=== PATIENT | female | born 1990 | race Caucasian/White ===

== ENCOUNTER → 2017-07-27 17:46 | Emergency (ER) | payer BC, MEDICAID ==
[2017-07-27 18:58] LABS: ABS Basophils 0.1 10^3/ul (0-0.2); ABS Eosinophils 0.3 10^3/ul (0-0.6); ABS Lymphocytes 2.8 10^3/ul (1.0-4.8); ABS Monocytes 0.7 10^3/ul (0-0.8); ABS Neutrophils 7.4 10^3/ul (1.5-7.7); ABS Nucleated RBC 0 10^3/ul; Eosinophil % 2.7 % (0-6); Hematocrit 40 % (35-47); Hemoglobin 13.5 g/dl (12.0-16.0); Lymphocyte % 24.8 % (25-47); Mean Corpuscular HGB Conc 34 g/dl (31-36); Mean Corpuscular Hemoglobin 30 pg (27-31); Mean Corpuscular Volume 89 fL (80-97); Mean Platelet Volume 7 um3 (7.4-10.4); Nucleated Red Blood Cells % 0; Platelet Count 356 10^3/ul (150-450); Red Blood Count 4.47 10^6/ul (4.0-5.4); Red Cell Distribution Width 13 % (10.5-15); White Blood Count 11.3 10^3/ul (3.5-10.8)
[2017-07-27 19:15] LABS: INR 0.93 (0.77-1.02)
[2017-07-27 19:27] LABS: EGFR Non-African American 127.7 (>60)
--- NOTE | 2017-07-27 19:47 | ED ---
- HPI Summary HPI Summary: 26F [id number] presents with vaginal bleeding and cramping today. She states she has been spotting starting today. She admits to nausea and vomiting that is not now. She has history of miscarriage and states that it feels similar. She denies any lightheadedness or palpitations. She denies any recent illness. She states cramping is intermittent. She has not seen her obgyn yet. - History of Current Complaint Chief Complaint: EDOBProblems Stated Complaint: OB PROBLEM Time Seen by Provider: 07/27/17 18:06 Pain Intensity: 0 - Assessment Hx Now: Yes SAB: 0 IEA: 0 - Additional Pertinent History Maternal Blood Type and Rh: O Positive - Allergies/Home Medications Allergies/Adverse Reactions: Allergies Allergy/AdvReac Type Severity Reaction Status Date / Time Cefaclor [From Ceclor] Allergy Mild Hives Verified 07/27/17 18:03 Cefprozil [From Cefzil] Allergy Mild Hives Verified 07/27/17 18:03 Iodine Allergy Anaphylatic Verified 07/27/17 18:03 Shock Latex Allergy Rash And Verified 07/27/17 18:03 Itching Shrimp Allergy Severe Anaphylatic Uncoded 07/27/17 18:03 Shock Clams Allergy Intermediate Anaphylatic Uncoded 07/27/17 18:03 Shock PMH/Surg Hx/FS Hx/Imm Hx Endocrine/Hematology History: Denies: Hx Diabetes, Hx Thyroid Disease Cardiovascular History: Denies: Hx Hypertension Respiratory History: Denies: Hx Asthma, Hx Chronic Obstructive Pulmonary Disease (COPD) GI History: Denies: Hx Ulcer - Surgical History Surgery Procedure, Year, and Place: colostomy as infant, corrected in childhood; Infectious Disease History: No Infectious Disease History: Denies: Hx Hepatitis, Hx Human Immunodeficiency Virus (HIV), Traveled Outside the [place] in Last 30 Days - Family History Known Family History: Negative: Blood Disorder - Social History Alcohol Use: Occasionally Substance Use Type: Reports: None Smoking Status (MU): Former Smoker Type: Cigarettes Have You Smoked in the Last Year: Yes Review of Systems Negative: Fever Negative: Chest Pain Negative: Shortness Of Breath Positive: Abdominal Pain - cramping, Other - vaginal bleeding. Negative: Vomiting, Diarrhea, Nausea All Other Systems Reviewed And Are Negative: Yes Physical Exam - Physical Exam Triage Information Reviewed: Yes Vital Signs Reviewed: Yes Appearance: Positive: Well-Appearing Skin: Positive: Warm, Dry Head/Face: Positive: Normal Head/Face Inspection Eyes: Positive: Normal, Conjunctiva Clear Respiratory/Lung Sounds: Positive: Clear to Auscultation, Breath Sounds Present Cardiovascular: Positive: Normal, RRR Abdomen Description: Positive: Nontender, Soft Bowel Sounds: Positive: Present Neurological: Positive: Normal Psychiatric: Positive: Normal - Vaginal Assessment Presentation Comment: cervix extremely anterior Diagnostics - Vital Signs Vital Signs Temp Pulse Resp BP Pulse Ox 07/27/17 18:03 98.6 F 88 16 137/82 100 - Laboratory Lab Results: Lab Results 07/27/17 07/27/17 07/27/17 Range/Units 18:49 18:49 18:49 WBC 11.3 H (3.5-10.8) 10^3/ul RBC 4.47 (4.0-5.4) 10^6/ul Hgb 13.5 (12.0-16.0) g/dl Hct 40 (35-47) % MCV 89 (80-97) fL MCH 30 (27-31) pg MCHC 34 (31-36) g/dl RDW 13 (10.5-15) % Plt Count 356 (150-450) 10^3/ul MPV 7 L (7.4-10.4) um3 Neut % (Auto) 65.6 (38-83) % Lymph % (Auto) 24.8 L (25-47) % Loving % (Auto) 6.4 (1-9) % Eos % (Auto) 2.7 (0-6) % Baso % (Auto) 0.5 (0-2) % Absolute Neuts (auto) 7.4 (1.5-7.7) 10^3/ul Absolute Lymphs (auto) 2.8 (1.0-4.8) 10^3/ul Absolute Monos (auto) 0.7 (0-0.8) 10^3/ul Absolute Eos (auto) 0.3 (0-0.6) 10^3/ul Absolute Basos (auto) 0.1 (0-0.2) 10^3/ul Absolute Nucleated RBC 0 10^3/ul Nucleated RBC % 0 INR (Anticoag Therapy) 0.93 (0.77-1.02) APTT 32.5 (26.0-36.3) seconds Sodium (133-145) mmol/L Potassium (3.5-5.0) mmol/L Chloride (101-111) mmol/L Carbon Dioxide (22-32) mmol/L Anion Gap (2-11) mmol/L BUN (6-24) mg/dL Creatinine (0.51-0.95) mg/dL Est GFR ( Amer) (>60) Est GFR (Non-Af Amer) (>60) BUN/Creatinine Ratio (8-20) Glucose (70-100) mg/dL Calcium (8.6-10.3) mg/dL Total Bilirubin (0.2-1.0) mg/dL AST (13-39) U/L ALT (7-52) U/L Alkaline Phosphatase (34-104) U/L Total Protein (6.4-8.9) g/dL Albumin (3.2-5.2) g/dL Globulin (2-4) g/dL Albumin/Globulin Ratio (1-3) Beta HCG, Quant Blood Type O Positive 07/27/17 Range/Units 18:49 WBC (3.5-10.8) 10^3/ul RBC (4.0-5.4) 10^6/ul Hgb (12.0-16.0) g/dl Hct (35-47) % MCV (80-97) fL MCH (27-31) pg MCHC (31-36) g/dl RDW (10.5-15) % Plt Count (150-450) 10^3/ul MPV (7.4-10.4) um3 Neut % (Auto) (38-83) % Lymph % (Auto) (25-47) % Loving % (Auto) (1-9) % Eos % (Auto) (0-6) % Baso % (Auto) (0-2) % Absolute Neuts (auto) (1.5-7.7) 10^3/ul Absolute Lymphs (auto) (1.0-4.8) 10^3/ul Absolute Monos (auto) (0-0.8) 10^3/ul Absolute Eos (auto) (0-0.6) 10^3/ul Absolute Basos (auto) (0-0.2) 10^3/ul Absolute Nucleated RBC 10^3/ul Nucleated RBC % INR (Anticoag Therapy) (0.77-1.02) APTT (26.0-36.3) seconds Sodium 134 (133-145) mmol/L Potassium 3.4 L (3.5-5.0) mmol/L Chloride 103 (101-111) mmol/L Carbon Dioxide 24 (22-32) mmol/L Anion Gap 7 (2-11) mmol/L BUN 10 (6-24) mg/dL Creatinine 0.58 (0.51-0.95) mg/dL Est GFR ( Amer) 164.3 (>60) Est GFR (Non-Af Amer) 127.7 (>60) BUN/Creatinine Ratio 17.2 (8-20) Glucose 99 (70-100) mg/dL Calcium 9.4 (8.6-10.3) mg/dL Total Bilirubin 0.20 (0.2-1.0) mg/dL AST 15 (13-39) U/L ALT 13 (7-52) U/L Alkaline Phosphatase 61 (34-104) U/L Total Protein 7.5 (6.4-8.9) g/dL Albumin 4.1 (3.2-5.2) g/dL Globulin 3.4 (2-4) g/dL Albumin/Globulin Ratio 1.2 (1-3) Beta HCG, Quant Pending Blood Type Result Diagrams: 07/27/17 18:49 07/27/17 18:49 Lab Statement: Any lab studies that have been ordered have been reviewed, and results considered in the medical decision making process. - Ultrasound No standard instances Ultrasound Interpretation: Positive (See Comments) - IMPRESSION: Single intrauterine gestation with estimated gestational age of 7 weeks 6 days. Estimated date of delivery is March 02, 1718. Left corpus luteal cyst is identified. Ultrasound Interpretation Completed By: Radiologist Course/Dx - Course Course Of Treatment: 26F [id number] presents with vaginal bleeding and cramping today. She states she has been spotting starting today. She admits to nausea and vomiting that is not now. She has history of miscarriage and states that it feels similar. She denies any lightheadedness or palpitations. She denies any recent illness. She states cramping is intermittent. She has not seen her obgyn yet. [place] [address]. u/s shows intrauterine . will have follow up with obgyn for repeat hcg level. patient understand and agrees with plan. - Differential Diagnosis/HQI/PQRI: Spontaneous , Threatened , Intrauterine - Diagnoses Provider Diagnoses: Vaginal bleeding during , antepartum Discharge - Discharge Plan Condition: Good Disposition: HOME Patient Education Materials: Threatened Miscarriage (ED) Referrals: Vern Long MD [Primary Care Provider] - Additional Instructions: The education provided is for your information. You may or may not have a miscarriage at this point. Follow up with OBGYN as will need repeat HCG level drawn to trend in two days Return to ED if develop severe abdominal pain, fever, severe bleeding with symptoms such as lightheadedness or any new or worsening symptoms
--- NOTE | 2017-07-27 21:09 | RAD ---
Indication: , bleeding. Real-time sonography of the was performed. There is a single intrauterine gestation with a mean crown-rump length of 1.6 cm corresponding to gestational age of 8 weeks 0 days. Gestational sac measures 2.5 cm corresponding to gestational age of 7 weeks 5 days. Yolk sac is identified. heart activity is noted at 1 53 bpm. The estimated gestational age of 7 weeks 6 days. Estimated date of delivery is March 09, 2018. Right ovary measures 3.0 x 2.2 x 3.2 cm. Left ovary measures 4.3 x 3.4 x 3.5 cm with likely corpus luteal cyst measuring up to 1.9 x 2.1 x 2.0 cm. IMPRESSION: Single intrauterine gestation with estimated gestational age of 7 weeks 6 days. Estimated date of delivery is March 02, 1718. Left corpus luteal cyst is identified.
[2017-07-27 21:42] LABS: Urine Appearance Clear; Urine Blood 1+ (Negative); Urine Color Yellow; Urine Ketones Negative (Negative); Urine Protein Negative (Negative); Urine Urobilinogen Negative (Negative)
[2017-07-27 22:23] VITALS: BP 122/81
== END | disposition home or self-care (01) ==
LOC: ED 17:46
DX: O46.91 Antepartum hemorrhage, unspecified, first trimester (principal); Z3A.01 Less than 8 weeks gestation of pregnancy; Z87.891 Personal history of nicotine dependence
CPT/HCPCS: 36415; 76801; 80053; 81003; 81015; 84702; 85025; 85610; 85730; 86900; 86901; 87086; 99283

== ENCOUNTER 2017-12-25 11:12 | Emergency (ER) | payer BC ==
[2017-12-25 11:54] VITALS: BP 111/74
--- NOTE | 2017-12-25 12:31 | UC ---
Karine Sawyer Tenzin, scribed for Irina Farnsworth MD on 12/25/17 at 1219 . Throat Pain/Nasal Ross HPI - HPI Summary HPI Summary: Pt is a 27 years old female currently (due in february) presenting to the [facility] complaining of stuffy nose, congestion since two weeks ago. She notes that she had sore throat last night. Patient also with left ear pain and fullness. Pt rates the pain at 2/10 in severity and describes it as aching, sharp and burning. pt with + PND. + cough - mild sob with coughing episodes. Pt denies fever, nauseous and chills. Pt took Mucinex for her sore throat. She is a hair and makeup designer. + sick contact with strep. Has a 3 yo with runny nose. Pt's medications reviewed this visit - History of Current Complaint Chief Complaint: UCGeneralIllness Stated Complaint: SORE THROAT SINUS ISSUE Time Seen by Provider: 12/25/17 11:53 Hx Obtained From: Patient Hx Last Menstrual Period: March 17, 2103 Onset/Duration: Gradual Onset Pain Intensity: 2 Pain Scale Used: 0-10 Numeric Cough: Nonproductive Associated Signs & Symptoms: Positive: Negative - Allergies/Home Medications Allergies/Adverse Reactions: Allergies Allergy/AdvReac Type Severity Reaction Status Date / Time cefaclor [From Ceclor] Allergy Hives Verified 12/25/17 11:54 cefprozil [From Cefzil] Allergy Hives Verified 12/25/17 11:55 iodine Allergy Rash Verified 12/25/17 11:55 latex Allergy Rash Verified 12/25/17 11:55 shellfish Allergy anaph Uncoded 12/25/17 11:56 PMH/Surg Hx/FS Hx/Imm Hx - Additional Past Medical History Additional PMH: NEGATIVE: PR, CVA. Previously Healthy: Yes - Surgical History Surgical History: Yes Surgery Procedure, Year, and Place: colostomy as infant, corrected in childhood; - Family History Known Family History: Positive: Hypertension Negative: Blood Disorder - Social History Occupation: Employed Full-time Lives: With Family Alcohol Use: None Substance Use Type: None Smoking Status (MU): Former Smoker Type: Cigarettes Have You Smoked in the Last Year: Yes Review of Systems Constitutional: Negative Skin: Negative Eyes: Negative ENT: Sore Throat, Sinus Congestion, Other - stuffy nose. Respiratory: Cough Cardiovascular: Negative Gastrointestinal: Negative Genitourinary: Negative Motor: Negative Neurovascular: Negative Musculoskeletal: Other: - pain around her lymph nodes in pelvis. Neurological: Negative Psychological: Negative All Other Systems Reviewed And Are Negative: Yes Physical Exam - Summary Physical Exam Summary: Vital Signs Reviewed: Yes A+Ox3, no distress Eyes: Conjunctiva Clear, MACO EOM intact and full ENT: Hearing grossly normal right TM mild fluid left TM ++ erythema, + fluid turbinates inflammed and boggy + PND no exudate, no erythema neck: supple, no LA Respiratory: + CTA throughout no w/r Cardiovascular: RRR nl s1, s2 no m/r Abd gravid Musculoskeletal Exam: AMAYA x 4 without difficulty Neurological: Positive: Alert, ambulatory without difficulty Psychological: Positive: Normal Response To Family Skin: Positive: no rash, no ecchymosis Triage Information Reviewed: Yes Vital Signs: Initial Vital Signs Temp 97 F 12/25/17 11:51 Pulse 88 12/25/17 11:51 Resp 18 12/25/17 11:51 BP 111/74 12/25/17 11:51 Pulse Ox 99 12/25/17 11:51 Throat Pain/Nasal Course/Dx - Course Course Of Treatment: Pt with 2 weeks progressive congestion, sore throat, ear pain. Pt has taken Mucinex with little improvement. Will check strep. will Rx amox for ear. claritin secretion precaution. hydrate. APAP. She has taken pcn/amoxicillin without difficulty despite allergy to Cephalosporin. - Differential Dx/Diagnosis Provider Diagnoses: left otitis media. sinusitis Discharge - Sign-Out/Discharge Documenting (check all that apply): Discharge/Admit/Transfer - Discharge Plan Condition: Stable Disposition: HOME Prescriptions: Amoxicillin PO (*) [Amoxicillin 500 MG CAP*] 500 mg PO Q12H #14 cap Patient Education Materials: Pharyngitis (ED), Ear Infection (ED) Referrals: Vern Long MD [Primary Care Provider] - Additional Instructions: - Stay well hydrated. Drink plenty of non-alcoholic, non-caffinated beverages. - Okay to take Tylenol every 6 hours for pain of fever. Take with food. Do NOT take for more than 4-5 days. - These infections are spread by secretions - do NOT share eating or drinking utensils - clean items you share with other people such as cell phones, computer mouse, TV remote, computer tablets,etc. Once you have been antibiotics for 2 days, change your toothbrush and your pillowcase. - take antibiotics as prescribed - okay to take an allergy medication such as Claritin to help with congestion and post nasal drip - get plenty of restful sleep - Contact your doctor or return with questions or concerns - Billing Disposition and Condition Condition: STABLE Disposition: Home The documentation as recorded by the Karine subramanian Tenzin accurately reflects the service I personally performed and the decisions made by , Irina Farnsworth MD.
== END 2017-12-25 12:50 | disposition home or self-care (01) ==
LOC: UCEAST 11:12
DX: O26.899 Other specified pregnancy related conditions, unspecified trimester (principal); J32.9 Chronic sinusitis, unspecified; H66.92 Otitis media, unspecified, left ear; Z91.040 Latex allergy status; Z88.8 Allergy status to other drugs, medicaments and biological substances; Z91.013 Allergy to seafood; Z88.0 Allergy status to penicillin
CPT/HCPCS: 87651; 99212; G0463

== ENCOUNTER 2018-02-24 11:54 | Inpatient (IN) | payer BC ==
[2018-02-24] MEDS ORDERED: Misoprostol TAB* 100 MCG PO ONE (13:39)
--- NOTE | 2018-02-24 13:49 | HP ---
General Information - Reason for Visit IOL, Hypertension. 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, LSIL, hx colostomy Pertinent Past Surgical History: See Records - 1992 colostomy, 1994: pull through Pertinent Family History: See Records - HTN, Breast CA, hirschsprungs Review of Systems Constitutional: Comfortable CV Complaint: No Respiratory: Shortness of Breath: No Gastrointestinal: No Nausea/Vomiting, Normal Bowel Movement Genitourinary: No Dysuria, No Bleeding, No Leaking Fluid Musculoskeletal: No Complaint, No Epigastric Pain Neurological: No Headache, No Visual Changes Movement: Normal Exam Allergies/Adverse Reactions: Allergies cefaclor [From Ceclor] Allergy (Verified 01/30/18 19:51) Hives cefprozil [From Cefzil] Allergy (Verified 01/30/18 19:51) Hives iodine Allergy (Verified 01/30/18 19:51) Rash latex Allergy (Verified 01/30/18 19:51) Rash shellfish Allergy (Uncoded 01/30/18 19:51) anaph T:98.5, P:106, r:22, BP: 136/95, O2:100 - Measurements Height: 5 ft 2 in Weight: 180 lb Weight in lbs: [id number] Body Mass Index (BMI): 32.9 Pre- Weight: 152 lb Weight Gained This : 28 lbs and 0 ozs - Exam Breast: Breast Exam Deferred CVA: No CVA Tenderness Extremities: No Edema Heart: Normal Rhythm/Heart Sounds HEENT: No Significant Findings Lungs: Clear Bilaterally Rectal: Rectal Exam Deferred Reflexes: DTR 2+ Thyroid: No Thyromegaly - Abdominal Exam Abdomen Exam: Fundal Height Consistent with Dates - Ultrasound/Biophysical Profile Ultrasound Status: Not Done Targeted Exam Findings See L&D Outpatient Visit Provider Note for Findings: N/A Estimated Weight: 7lbs Cervical Exam: 3cm Effacement: 60% Station: -2 Presenting Part: Vertex Membrane Status: Intact Bleeding/Discharge: None EFM Findings - External Monitor Findings Baseline Heart Rate: 5 External Monitor Findings: Accelerations Present, No Pattern of Variable or Late Decelerations, Variability Moderate, Baseline Stable Contractions: Irregular, Mild, < 45 Seconds Assessment/Plan - Assessment 27 y.o. , Gestational HTN, IOL. Cat I NST. - Obstetrical Risk Factors Obstetrical Risk Factors: Gestational Hypertension Risk Factors Comment: history of abdominal surgeries - Plan Plan: Cervical Ripening - Date/Time of Admission Date of Admission: 02/24/18 Time of Admission: 13:45
--- NOTE | 2018-02-24 19:41 | PN ---
Progress Note - Progress Note Date of Service: 02/24/18 SOAP: Subjective: [Pt reports contractions are more painful, pt denies VB or LOF. Pt reports increased pressure in vagina and rectum. +FM ] Objective: [BP:126/73, P:101 NST: baseline: 130, +accels, -decels, mod variability, ctx q 3-5min Cervix: 4-5cm/70%/-2] Assessment: [27 y.o. . GHTN, early labor, Cat 1 NST] Plan: [1) Continue position changes to encourage descent 2) Reevaluate PRN, consider SROM]
[2018-02-25] MEDS ORDERED: Acetaminophen TAB* 325 MG PO ONE (00:28)
--- NOTE | 2018-02-25 06:21 | PN ---
Progress Note - Progress Note Date of Service: 02/25/18 Note: Called to room by pt. Pt reports contractions have completely stopped. Pt has been doing position changes, walking, resting and has tried nipple stimulation with no change. Reviewed options with pt and pt agree to continue with pitocin augmentation. Reviewed risks versus benefits.
[2018-02-25] MEDS ORDERED: Oxytocin in LR* 20 UNITS/1,000 ML BAG IVPB SCH (07:00)
[2018-02-25 07:39] LABS: ABS Basophils 0 10^3/ul (0-0.2); ABS Eosinophils 0.1 10^3/ul (0-0.6); ABS Lymphocytes 2.2 10^3/ul (1.0-4.8); ABS Monocytes 0.7 10^3/ul (0-0.8); ABS Neutrophils 8.3 10^3/ul (1.5-7.7); ABS Nucleated RBC 0 10^3/ul; Eosinophil % 0.5 % (0-6); Hematocrit 38 % (35-47); Hemoglobin 12.7 g/dl (12.0-16.0); Lymphocyte % 19.3 % (25-47); Mean Corpuscular HGB Conc 34 g/dl (31-36); Mean Corpuscular Hemoglobin 29 pg (27-31); Mean Corpuscular Volume 86 fL (80-97); Mean Platelet Volume 7.2 um3 (7.4-10.4); Nucleated Red Blood Cells % 0.1; Platelet Count 299 10^3/ul (150-450); Red Blood Count 4.38 10^6/ul (4.00-5.40); Red Cell Distribution Width 14 % (10.5-15); White Blood Count 11.3 10^3/ul (3.5-10.8)
--- NOTE | 2018-02-25 14:17 | PN ---
Progress Note - Progress Note Date of Service: 02/24/18 - 20:50 SOAP: Subjective: [Pt coping well with moderate ctx. Pt requests AROM to try and intensify contractions. +FM, -VB] Objective: [ FHR: 150bpm cervix: 5cm/80%/-1 AROM: bloody, clear] Assessment: [27 y.o. G HTN, IOL] Plan: [1. Reviewed options for augmentation and pt opts for AROM 2. Alternate position changes, ambulation and rest and hydration 3. Questions answered to pt satisfaction]
[2018-02-25] MEDS ORDERED: Mineral Oil Sterile, TOPICAL* 25 ML BTL ONE (16:29)
[2018-02-25] MEDS ORDERED: Dibucaine 1% 28.35 GM TUBE ONE (17:13)
[2018-02-25] MEDS ORDERED: Ibuprofen TAB* 600 MG ONE (17:13)
[2018-02-25] MEDS ORDERED: Witch Hazel PAD* JAR ONE (17:13)
[2018-02-25] MEDS ORDERED: Glycerin ADULT SUPP PR PRN (17:14)
[2018-02-25] MEDS ORDERED: Witch Hazel PAD* JAR TOPICAL PRN (17:14)
--- NOTE | 2018-02-25 17:16 | PROCNOTE ---
[facility] OB: Delivery Note - Delivery A Date of : 02/25/18 Time of : 16:55 Sex: Male Score 1 Minute: 3 Score 5 Minutes: 8 - 10 min:8 Gestational Age in Weeks and Days at Delivery: 38 Weeks and 2 Days Delivery Method: Spontaneous Vaginal Labor: Induced Amniotic Fluid: Clear Estimated Blood Loss: 200 Anesthesia/Analgesia: None Delivered By: Christina Henao - Nursery Level of Nursery: Regular/Bedside - Perineum Perineal Injury: Abrasion Only - Not Repaired Perineal Repair: None - Events Delivery Events of Note: Pitocin During Labor, Difficult Delivery Delivery Events of Note Comment: variable decelerations with pushing, special care called to room for delivery
[2018-02-25] MEDS: Dibucaine 1% 28.35 GM TUBE PR PRN (17:18)
[2018-02-25] MEDS ORDERED: Simethicone TAB* 80 MG TAB.CHEW PO SCH (17:30)
--- NOTE | 2018-02-25 18:33 | PN ---
Progress Note - Progress Note Date of Service: 02/24/18 - 23:00 SOAP: Subjective: [Pt states contractions continue at mild-mod intensity. Pt coping well, doing position changes and ambulating.] Objective: [cervix: 6/80/-1 clear amniotic fluid P: 84, BP: 146/89 FHR: 142 bpm, ctx q 3-4 min mild-moderate intensity] Assessment: [27 y.o. G1021 GHTN, IOL] Plan: [1) Encouragement provided to continue position changes, rest, and ambulation]
--- NOTE | 2018-02-25 18:37 | PN ---
Progress Note - Progress Note Date of Service: 02/25/18 - 3:45 AM SOAP: Subjective: [provider called to room with complaint from pt that contractions have stopped after taking a bath. Pt states she has rested and has been ambulating but nothing is happening. Pt expresses concern about progress.] Objective: [FHR: 1140 bpm cervix: 6/80/-3 BP:107/72] Assessment: [27 y.o. G1021 at 38w 2 d, IOL for GHTN Stalled labor] Plan: [1) Reviewed options, advised pt continue to rest and ambulate in moderation and to reevaluate in a few hours]
[2018-02-25] MEDS: Acetaminophen TAB* 325 MG PO PRN (18:39)
--- NOTE | 2018-02-25 18:48 | PN ---
Progress Note - Progress Note Date of Service: 02/25/18 - 5:45 AM SOAP: [Pt denies contractions and is expressing frustration. Reviewed options with patient regarding augmentation and pt elects to initiate pitocin. Questions answered to pt satisfaction. ]
[2018-02-25] MEDS ORDERED: Lidocaine 1%* 5 ML VIAL ONE (18:50)
--- NOTE | 2018-02-25 18:55 | PN ---
Progress Note - Progress Note Date of Service: 02/25/18 - 10:45 SOAP: Subjective: [Pt reports contractions continue to start and stop. Sometimes contractions are strong and regular with increased pressure and sometimes they are mild cramping sensations. Pt coping well. Expressing frustration with slow labor and fearful for C/S.] Objective: [140 bpm, +accels, -decels, mod variability, ctx q 4-5 alternating mild to mod. Pitocin at 11] Assessment: [27 y.o. G1021 at 38w 2 d, IOL for GHTN] Plan: [1) Continue pitocin, counseled pt on normal labor plans and indications for C/ S 2) Position changes, ambulation and hydrotherapy 3) Dr. Manriquez aware of pt and agrees with plan]
--- NOTE | 2018-02-25 18:57 | PN ---
Progress Note - Progress Note Date of Service: 02/25/18 - 14:30 Note: Pt c/o increasing discomfort, still coping well. Pitocin at 21mu. FHR: 140 bpm , mod variability, +accels, variable decels, ctx q 2-4 min. Anticipate vaginal delivery
--- NOTE | 2018-02-25 19:00 | PN ---
Progress Note - Progress Note Date of Service: 02/25/18 - 13:45 SOAP: Subjective: [Pt uncomfortable, in tub, requesting medications] Objective: [cervix: 9/100/0 FHR: 150bpm, +accels, early decels and occasional variables, mod variability, ctx q 2-3 mod-strong] Assessment: [27 y.o. G1021 at 38w 2 d, IOL for GHTN Stalled labor pitocin augmentation] Plan: [Anticipate vaginal delivery, special care nurse informed and requested for delivery]
[2018-02-26] MEDS: Docusate CAP* 100 MG PO SCH ×2 (00:26→14:33)
[2018-02-26] MEDS ORDERED: Clotrimazole 1% CREAM* 45 GM TOPICAL SCH (01:00)
[2018-02-26] MEDS: Ibuprofen TAB* 600 MG PO PRN ×2 (01:16→15:44)
[2018-02-26] MEDS: Acetaminophen TAB* 325 MG PO PRN (06:32)
[2018-02-26 06:34] LABS: ABS Basophils 0 10^3/ul (0-0.2); ABS Eosinophils 0 10^3/ul (0-0.6); ABS Lymphocytes 2.3 10^3/ul (1.0-4.8); ABS Monocytes 0.8 10^3/ul (0-0.8); ABS Neutrophils 11.1 10^3/ul (1.5-7.7); ABS Nucleated RBC 0 10^3/ul; Eosinophil % 0.3 % (0-6); Hematocrit 33 % (35-47); Hemoglobin 10.9 g/dl (12.0-16.0); Lymphocyte % 15.9 % (25-47); Mean Corpuscular HGB Conc 34 g/dl (31-36); Mean Corpuscular Hemoglobin 29 pg (27-31); Mean Corpuscular Volume 87 fL (80-97); Mean Platelet Volume 7.1 um3 (7.4-10.4); Nucleated Red Blood Cells % 0; Platelet Count 240 10^3/ul (150-450); Red Blood Count 3.73 10^6/ul (4.00-5.40); Red Cell Distribution Width 14 % (10.5-15); White Blood Count 14.3 10^3/ul (3.5-10.8)
[2018-02-26] MEDS ORDERED: Ferrous Gluconate TAB* 324 MG TAB PO SCH (09:00)
--- NOTE | 2018-02-26 14:02 | PN ---
Progress Note - Progress Note Date of Service: 02/26/18 SOAP: Subjective: [Pt reports + OOB, +eating and drinking, +voiding and +BM, and decreased lochia. Pt is without concerns. Pt desires D/C to home tonight.] Objective: [T:97.7, R:16, P:97, BP: 119/82, H/H: 10.9/33, WBC: 14.3, platelets: 240] Assessment: [27 y.o. day 1 PP. VSS. G HTN.] Plan: [1) Anticipate D/C tonight. ]
[2018-02-26 15:59] VITALS: BP 132/94
[2018-02-26] MEDS: Dibucaine 1% 28.35 GM TUBE PR PRN (16:55)
== END 2018-02-26 17:48 | disposition home or self-care (01) | DRG 560 ==
LOC: MCHOBOUT 11:54 → MCHOB 13:41
PROVIDERS: ADMIT Midwife; ATTEND Midwife
PROC: 10E0XZZ Delivery of Products of Conception, External Approach (ICD-10-PCS; principal; 2018-02-25)
PROC: 10907ZC Drainage of Amniotic Fluid, Therapeutic from Products of Conception, Via Natural or Artificial Opening (ICD-10-PCS; 2018-02-25)
PROC: 4A1HXCZ Monitoring of Products of Conception, Cardiac Rate, External Approach (ICD-10-PCS; 2018-02-25)
DX: O13.4 Gestational [pregnancy-induced] hypertension without significant proteinuria, complicating childbirth (principal); Z82.49 Family history of ischemic heart disease and other diseases of the circulatory system; Z80.3 Family history of malignant neoplasm of breast; Z83.79 Family history of other diseases of the digestive system; Z88.1 Allergy status to other antibiotic agents; Z91.041 Radiographic dye allergy status; Z91.040 Latex allergy status; Z91.013 Allergy to seafood; Z3A.38 38 weeks gestation of pregnancy; Z37.0 Single live birth; O69.81X0 Labor and delivery complicated by cord around neck, without compression, not applicable or unspecified; O71.89 Other specified obstetric trauma; O76 Abnormality in fetal heart rate and rhythm complicating labor and delivery
CPT/HCPCS: 36415; 85025; 86850; 86900; 86901; A9270-GY; S0191

== ENCOUNTER 2018-10-24 20:58 | Emergency (ER) | payer BC ==
--- NOTE | 2018-10-24 21:03 | UC ---
Throat Pain/Nasal Ross HPI - HPI Summary HPI Summary: 27 yo female presents with sinus congestion, runny nose, and right ear pain/ fullness for the last week. She is currently her 7m old son. She has been taking mucinex OTC with little relief. Denies fever, chills, sore throat, cough, rash. - History of Current Complaint Stated Complaint: EAR PAIN/SINUS Time Seen by Provider: 10/24/18 21:01 Hx Obtained From: Patient Hx Last Menstrual Period: March 17, 2103 Onset/Duration: Gradual Onset Severity: Moderate Pain Intensity: 6 Pain Scale Used: 0-10 Numeric - Allergies/Home Medications Allergies/Adverse Reactions: Allergies Allergy/AdvReac Type Severity Reaction Status Date / Time cefaclor [From Ceclor] Allergy Hives Verified 10/24/18 21:05 cefprozil [From Cefzil] Allergy Hives Verified 10/24/18 21:05 iodine Allergy Rash Verified 10/24/18 21:05 latex Allergy Rash Verified 10/24/18 21:05 shellfish Allergy anaph Uncoded 10/24/18 21:05 PMH/Surg Hx/FS Hx/Imm Hx - Additional Past Medical History Additional PMH: None - Surgical History Surgical History: Yes Surgery Procedure, Year, and Place: colostomy as , corrected in childhood; - Family History Known Family History: Positive: Hypertension Negative: Blood Disorder - Social History Occupation: Employed Full-time Lives: With Family Alcohol Use: None Substance Use Type: None Smoking Status (MU): Former Smoker Type: Cigarettes Have You Smoked in the Last Year: Yes - Immunization History Most Recent Influenza Vaccination: unknown Most Recent Pneumonia Vaccination: none Review of Systems All Other Systems Reviewed And Are Negative: Yes Constitutional: Positive: Negative Skin: Positive: Negative Eyes: Positive: Negative ENT: Positive: Ear Ache, Nasal Discharge, Sinus Congestion, Sinus Pain/ Tenderness Respiratory: Positive: Negative Cardiovascular: Positive: Negative Gastrointestinal: Positive: Negative Neurological: Positive: Negative Psychological: Positive: Negative Physical Exam - Summary Physical Exam Summary: GENERAL: NAD. WDWN. No pain distress. SKIN: No rashes, sores, lesions, or open wounds. HEENT: Head: AT/NC Eyes: EOM intact. Conjunctiva clear without inflammation or discharge. Ears: Hearing grossly normal. TMs intact, no bulging, erythema, or edema. RIGHT with clear fluid behind TM Nose: Nasal mucosa mildly swollen and erythematous without discharge. TTP maxillary > frontal sinus. Throat: Posterior oropharynx without exudates, erythema, or tonsillar enlargement. Uvula midline. NECK: Supple. Nontender. No lymphadenopathy. CHEST: CTAB. No r/r/w. No accessory muscle use. Breathing comfortably and in no distress. CV: RRR. Without m/r/g. Pulses intact. NEURO: Alert. PSYCH: Age appropriate behavior. Triage Information Reviewed: Yes Vital Signs: Vital Signs: Temp Pulse Resp BP Pulse Ox 97.4 F 77 20 134/83 100 10/24/18 21:06 10/24/18 21:06 10/24/18 21:06 10/24/18 21:06 10/24/18 21:06 Vital Signs Reviewed: Yes Throat Pain/Nasal Course/Dx - Course Course Of Treatment: Serous otitis media and rhinosinusitis. Discussed with pt viral vs bacterial and she prefers to be on anbx at this time as "everyone in her house is sick". Will rx for amoxicillin and claritin. Advised to continue taking OTC mucinex and f/u if her symptoms do not improve. - Differential Dx/Diagnosis Provider Diagnosis: Serous otitis media, Rhinosinusitis Discharge - Sign-Out/Discharge Documenting (check all that apply): Patient Departure All imaging exams completed and their final reports reviewed: No Studies - Discharge Plan Condition: Stable Disposition: HOME Prescriptions: Amoxicillin PO (*) [Amoxicillin 875 MG (*)] 875 mg PO BID #14 tab Loratadine [Claritin] 10 mg PO DAILY #14 capsule Patient Education Materials: Sinusitis (ED), Serous Otitis Media (ED) Referrals: Vern Long MD [Primary Care Provider] - Additional Instructions: If you develop a fever, shortness of breath, chest pain, new or worsening symptoms - please call your PCP or go to the ED. - Billing Disposition and Condition Condition: STABLE Disposition: Home
[2018-10-24 21:08] VITALS: BP 134/83
== END 2018-10-24 21:21 | disposition home or self-care (01) ==
LOC: UCCORT 20:58
DX: J32.9 Chronic sinusitis, unspecified (principal); H65.91 Unspecified nonsuppurative otitis media, right ear; Z88.1 Allergy status to other antibiotic agents; Z91.09 Other allergy status, other than to drugs and biological substances; Z91.040 Latex allergy status; Z91.013 Allergy to seafood; Z87.891 Personal history of nicotine dependence
CPT/HCPCS: 99212; G0463

== ENCOUNTER 2019-06-02 14:24 | Emergency (ER) | payer SELFPAY ==
[2019-06-02 14:45] VITALS: BP 134/79
--- NOTE | 2019-06-02 15:10 | UC ---
Throat Pain/Nasal Ross HPI - HPI Summary HPI Summary: 28-year-old female with a sore throat and left earache for the past 2 days. She states on Friday she finished medicine for pinkeye. She states today she aches all over but no fever or chills and no nausea vomiting or diarrhea. - History of Current Complaint Chief Complaint: UCGeneralIllness Stated Complaint: FEVER, ACHES, AND NAUSEA Time Seen by Provider: 06/02/19 15:03 Hx Obtained From: Patient Hx Last Menstrual Period: March 17, 2103 ?: No Onset/Duration: Gradual Onset Severity: Mild Pain Intensity: 5 Cough: None Associated Signs & Symptoms: Positive: Nasal Discharge - Allergies/Home Medications Allergies/Adverse Reactions: Allergies Allergy/AdvReac Type Severity Reaction Status Date / Time nickel Allergy Intermediate Rash Verified 06/02/19 14:45 cefaclor [From Ceclor] Allergy Hives Verified 06/02/19 14:45 cefprozil [From Cefzil] Allergy Hives Verified 06/02/19 14:45 iodine Allergy Rash Verified 06/02/19 14:45 latex Allergy Rash Verified 06/02/19 14:45 shellfish Allergy anaph Uncoded 06/02/19 14:45 Home Medications: Home Medications Ibuprofen 200 mg PO SEE INSTRUCTIONS 06/02/19 [History Confirmed 06/02/19] PMH/Surg Hx/FS Hx/Imm Hx Previously Healthy: Yes - Surgical History Surgical History: Yes Surgery Procedure, Year, and Place: colostomy as infant, corrected in childhood; - Family History Known Family History: Positive: Hypertension Negative: Blood Disorder - Social History Lives: With Family Alcohol Use: None Alcohol Amount: 1xWEEK Substance Use Type: None Smoking Status (MU): Former Smoker Type: Cigarettes Have You Smoked in the Last Year: Yes - Immunization History Most Recent Influenza Vaccination: unknown Most Recent Pneumonia Vaccination: none Review of Systems All Other Systems Reviewed And Are Negative: Yes ENT: Positive: Sore Throat, Ear Ache - Left ear ache for the past 2 days., Nasal Discharge Is Patient Immunocompromised?: No Physical Exam Triage Information Reviewed: Yes Appearance: Well-Appearing, No Pain Distress, Well-Nourished Vital Signs: Initial Vital Signs Temp 97.9 F 06/02/19 14:41 Pulse 68 06/02/19 14:41 Resp 18 06/02/19 14:41 BP 134/79 11/20/19 14:41 Pulse Ox 99 06/02/19 14:41 Vital Signs Reviewed: Yes Eyes: Positive: Conjunctiva Clear ENT: Positive: Hearing grossly normal, Pharyngeal erythema - Very minimal pharyngeal erythema., Nasal congestion - Clear nasal coryza., TMs normal, Uvula midline Neck: Positive: Supple, Nontender, No Lymphadenopathy Respiratory: Positive: Lungs clear, Normal breath sounds, No respiratory distress, No accessory muscle use Cardiovascular: Positive: RRR, No Murmur, Pulses Normal, Brisk Capillary Refill Musculoskeletal Exam: Normal Neurological Exam: Normal Psychological Exam: Normal Skin Exam: Normal Throat Pain/Nasal Course/Dx - Course Course Of Treatment: Rapid strep test: Negative Warm saltwater gargles, throat lozenges, may take Tylenol every 4 hours and Motrin every 8 hours for pain or fever. Follow-up with her primary care provider if no improvement in 4 or 5 days. - Differential Dx/Diagnosis Provider Diagnosis: Pharyngitis Discharge ED - Sign-Out/Discharge Documenting (check all that apply): Patient Departure All imaging exams completed and their final reports reviewed: No Studies - Discharge Plan Condition: Good Disposition: HOME Patient Education Materials: Pharyngitis (ED) Referrals: Vern Long MD [Primary Care Provider] - Additional Instructions: Warm saltwater gargles, throat lozenges. Tylenol every 4 hours and may alternate with Motrin every 8 hours for pain. Definite follow-up with your primary care provider if no improvement in 3 or 4 days. - Billing Disposition and Condition Condition: GOOD Disposition: Home
== END 2019-06-02 15:44 | disposition home or self-care (01) ==
LOC: UCEAST 14:24
DX: J02.9 Acute pharyngitis, unspecified (principal); H92.02 Otalgia, left ear; Z91.09 Other allergy status, other than to drugs and biological substances; Z91.013 Allergy to seafood; Z91.040 Latex allergy status; Z88.1 Allergy status to other antibiotic agents; Z87.891 Personal history of nicotine dependence
CPT/HCPCS: 87651; 99211; G0463